=== PATIENT | male | born 1995 | race American Indian/Alaskan Native ===

== ENCOUNTER 2017-08-08 17:33 | Emergency (ER) | payer SELFPAY | END 2017-08-08 18:00 | disposition left against medical advice (07) | LOC: ED 17:33 | DX: Z53.21 Procedure and treatment not carried out due to patient leaving prior to being seen by health care provider (principal) ==

== ENCOUNTER 2022-07-14 07:28 | Emergency (ER) | payer SELFPAY ==
[2022-07-14] MEDS ORDERED: FLUORESCEIN 1 MG STRIP OP ONE (09:43)
[2022-07-14] MEDS ORDERED: TETRACAINE 0.5% OPHTH SOLN 4ML OD STA (09:43)
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
[2022-07-14] MEDS ORDERED: ACETAMINOPHEN W/CODEINE 300-30 MG TAB PO ONE (10:42)
[2022-07-14] MEDS ORDERED: ERYTHROMYCIN 5 MG/1 GM OPHTH OINT OD NR (11:00)
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
[2022-07-14 12:06] VITALS: BP 138/70
== END 2022-07-14 12:05 | disposition home or self-care (01) ==
LOC: ED 07:28
DX: S02.2XXA Fracture of nasal bones, initial encounter for closed fracture (principal); S05.01XA Injury of conjunctiva and corneal abrasion without foreign body, right eye, initial encounter; S05.11XA Contusion of eyeball and orbital tissues, right eye, initial encounter; Y08.89XA Assault by other specified means, initial encounter; Y93.89 Activity, other specified; Y92.89 Other specified places as the place of occurrence of the external cause; Y99.8 Other external cause status
CPT/HCPCS: 70160; 99284